=== PATIENT | male | born 1980 | race Caucasian/White ===

== ENCOUNTER 2021-05-28 14:02 | Outpatient (REF) | payer OTHER, SELFPAY ==
[2021-05-28 14:29] LABS: COVID-19 Test Positive (Negative)
== END 2021-05-28 14:03 | disposition home or self-care (01) ==
LOC: HO.LAB 14:02
PROVIDERS: Visit Provider Internal Medicine
DX: Z20.822 Contact with and (suspected) exposure to COVID-19 (principal)
CPT/HCPCS: 36415; 87635; C9803

== ENCOUNTER 2021-06-03 12:20 | Outpatient (REF) | payer OTHER, SELFPAY ==
[2021-06-03 13:58] LABS: COVID-19 Test Positive (Negative)
== END 2021-06-03 12:21 | disposition home or self-care (01) ==
LOC: HO.LAB 12:20
PROVIDERS: Visit Provider Internal Medicine
DX: Z20.822 Contact with and (suspected) exposure to COVID-19 (principal)
CPT/HCPCS: 36415; 87635; C9803

== ENCOUNTER 2021-06-09 14:46 | Outpatient (REF) | payer OTHER, SELFPAY ==
[2021-06-09 15:28] LABS: COVID-19 Test Positive (Negative)
== END 2021-06-09 14:47 | disposition home or self-care (01) ==
LOC: HO.LAB 14:46
PROVIDERS: Visit Provider Internal Medicine
DX: Z20.822 Contact with and (suspected) exposure to COVID-19 (principal)
CPT/HCPCS: 36415; 87635; C9803